=== PATIENT | female | born 1980 | race Caucasian/White ===

== ENCOUNTER → 2023-09-04 16:22 | Outpatient (REF) | payer BC, SELFPAY | LOC: WDC 16:22 | DX: Z12.31 Encounter for screening mammogram for malignant neoplasm of breast (principal) | CPT/HCPCS: 77063; 77067 ==

== ENCOUNTER → 2023-09-20 13:18 | Outpatient (REF) | payer BC, SELFPAY | LOC: RAD 13:18 | DX: N92.6 Irregular menstruation, unspecified (principal) | CPT/HCPCS: 76830; 76856 ==